=== PATIENT | female | born 1975 | race African-American/Black ===

== ENCOUNTER 2025-03-30 19:21 | Inpatient (IN) | payer OTHER ==
[~2025-03-30] VITALS: Ht 160 cm; Wt 110.0 kg
[2025-03-30 20:21] LABS: PLATELET COUNT (AUTO) 233 K/uL (150-450); RED BLOOD CELL COUNT(AUTO) 4.98 MIL/uL (4.00-5.20); RED CELL DISTRIBUTION WIDTH 14.0 % (11.5-14.5); WHITE BLOOD COUNT (AUTO) 7.6 K/uL (4.5-11.0)
[2025-03-30 20:35] LABS: ASPARTATE AMINOTRANSFERASE 56.0 U/L (15-37); TOTAL PROTEIN, SERUM 7.6 g/dL (6.4-8.2)
[2025-03-30 20:38] LABS: APPEARANCE,URINE CLEAR (CLEAR); GLUCOSE, URINE (UA) >=1000 mg/dL (NEGATIVE); LEUKOCYTE ESTERASE ,URINE NEGATIVE (NEGATIVE); NITRATE,URINE NEGATIVE (NEGATIVE); OCCULT BLOOD,URINE NEGATIVE (NEGATIVE); SPECIFIC GRAVITIY, URINE 1.038 (1.003-1.030)
[2025-03-30 20:46] LABS: SQUAMOUS EPITHELIAL CELL,UR Moderate /LPF (None Seen)
[2025-03-30 20:50] LABS: GLUCOMETER DEV NAME(LOC) ERT.7; GLUCOSE,POINT OF CARE 510 MG/DL (70-110)
[2025-03-30] MEDS: SODIUM CHLORIDE 0.9% 1,000 ML IV ONE (20:58)
[2025-03-30 20:59] LABS: CALCIUM, TOTAL 9.1 mg/dL (8.8-10.5); CREATININE 0.95 mg/dL (0.60-1.30); GLOMERULAR FILTR. RATE CALC > 60 mL/min (>60); SODIUM SERUM 127 mmol/L (136-145); UREA NITROGEN, BLOOD 7 mg/dL (7-18)
[2025-03-30] MEDS: INSULIN REGULAR, HUMAN 100 UNITS/ML IVP ONE (21:01)
[2025-03-30 21:02] LABS: GLUCOSE,RANDOM 483 mg/dL (70-110)
[2025-03-30] MEDS ORDERED: POTASSIUM CHL 20 MEQ/0.45% NS 1,000 ML IV PRN (22:15)
[2025-03-30] MEDS ORDERED: DEXTROSE 5%-0.45% SODIUM CHL 1,000 ML IV PRN (22:15)
[2025-03-30] MEDS ORDERED: POTASSIUM CHLORIDE 40 MEQ in SODIUM CHLORIDE 0.45% 1,000 ML IV PRN (22:15)
[2025-03-30] MEDS ORDERED: SODIUM CHLORIDE 0.9% 1,000 ML IV SCH (22:15)
[2025-03-30] MEDS ORDERED: INSULIN REGULAR, HUMAN 100 UNITS/ML IVP PRN (22:15)
[2025-03-30] MEDS ORDERED: DEXTROSE 50%-WATER 25 GM/50 ML SYRINGE IVP PRN (22:15)
[2025-03-30] MEDS ORDERED: SODIUM CHLORIDE 0.45% 1,000 ML IV PRN (22:15)
[2025-03-30] MEDS ORDERED: INSULIN REGULAR, HUMAN 100 UNITS/ML IVP ONE (22:15)
[2025-03-30 22:36] LABS: GLUCOMETER DEV NAME(LOC) ERT.7; GLUCOSE,POINT OF CARE 338 MG/DL (70-110)
[2025-03-30] MEDS: INSULIN REGULAR, HUMAN 100 UNITS in SODIUM CHLORIDE 0.9% 99 ML IV PRN (23:09)
[2025-03-31] MEDS ORDERED: ONDANSETRON HCL 4 MG/2 ML VIAL IVP PRN
[2025-03-31] MEDS ORDERED: DEXTROSE 50%-WATER 25 GM/50 ML SYRINGE IVP PRN
[2025-03-31 00:26] LABS: GLUCOMETER DEV NAME(LOC) ERT.7; GLUCOSE,POINT OF CARE 315 MG/DL (70-110)
[2025-03-31] MEDS: INSULIN GLARGINE,HUM.REC.ANLOG 100 UNITS/ML SQ SCH (00:33)
[2025-03-31] MEDS: INSULIN LISPRO 100 UNITS/ML SQ PRN (00:34)
[2025-03-31] MEDS: SODIUM CHLORIDE 0.9% 1,000 ML IV ONE (00:35)
[2025-03-31] MEDS: HEPARIN SODIUM,PORCINE 5,000 UNITS/ML VIAL SQ SCH (00:37)
[2025-03-31 01:16] LABS: ABG BASE EXCESS -3.2 mmol/L (-2.0-3.0); ABG CARBOXYHEMOGLOBIN 0.6 % (0.5-1.5); ABG HCO3 22.2 mmol/L (21.0-28.0); ABG METHEMOGLOBIN 0.8 % (0.0-1.5); ABG OXYGEN CONTENT 17.9 mL/dL (15.0-23.0); ABG OXYGEN SATURATION 95.9 % (94.0-98.0); ABG OXYHEMOGLOBIN 94.6 % (94.0-98.0); ABG PCO2 37 mmHg (32.0-45.0); ABG PH 7.389 (7.350-7.450); ABG TOTAL HEMOGLOBIN 13.4 G/dL (12.0-16.0); ALLEN TEST, BLOOD GAS POS; FRACTIONATED INSPIRED OXYGEN 21.0 % (21-100.0); PO2, ARTERIAL BG 79.0 mmHg (83.0-108.0); SITE, BLOOD GAS RT BRACHIAL; SOURCE, BLOOD GAS ARTERIAL; TEMPERATURE, FAHRENHEIT, BG 98.3 FAHREN (96.0-98.6)
[2025-03-31 01:18] LABS: ABG A-A DIFF O2 26.7 mmHg (10-20.0)
[2025-03-31 01:36] LABS: GLUCOMETER DEV NAME(LOC) ERT.7; GLUCOSE,POINT OF CARE 258 MG/DL (70-110)
[2025-03-31] MEDS: RINGERS SOLUTION,LACTATED 1,000 ML IV SCH (01:47)
[2025-03-31 02:51] LABS: GLUCOMETER DEV NAME(LOC) ERT.7; GLUCOSE,POINT OF CARE 221 MG/DL (70-110)
[2025-03-31] MEDS ORDERED: IOHEXOL 350 MG/ML 100 ML VIAL ONE (02:57)
[2025-03-31 03:30] VITALS: BP 158/63; PULSE 63; RESP 17; TEMP 98; O2SAT 100
[2025-03-31 07:26] LABS: GLUCOMETER DEV NAME(LOC) 5S.1D; GLUCOSE,POINT OF CARE 214 MG/DL (70-110)
[2025-03-31 07:26] LABS: GLUCOMETER DEV NAME(LOC) 5S.2D; GLUCOSE,POINT OF CARE 180 MG/DL (70-110)
[2025-03-31 07:44] LABS: PLATELET COUNT (AUTO) 213 K/uL (150-450); RED BLOOD CELL COUNT(AUTO) 4.74 MIL/uL (4.00-5.20); RED CELL DISTRIBUTION WIDTH 13.9 % (11.5-14.5); WHITE BLOOD COUNT (AUTO) 5.9 K/uL (4.5-11.0)
[2025-03-31] MEDS: DOCUSATE SODIUM 100 MG CAPSULE PO SCH (08:18)
[2025-03-31] MEDS: ACETAMINOPHEN 325 MG TABLET PO PRN (08:18)
[2025-03-31 08:23] VITALS: BP 151/98; PULSE 65; RESP 18; TEMP 98.1; O2SAT 100
[2025-03-31 11:16] VITALS: BP 130/79; PULSE 67; RESP 18; TEMP 97.9; O2SAT 97
[2025-03-31 12:57] LABS: CALCIUM, TOTAL 8.2 mg/dL (8.8-10.5); CREATININE 0.61 mg/dL (0.60-1.30); GLOMERULAR FILTR. RATE CALC > 60 mL/min (>60); GLUCOSE,RANDOM 155 mg/dL (70-110); SODIUM SERUM 136 mmol/L (136-145); UREA NITROGEN, BLOOD 3 mg/dL (7-18)
[2025-03-31 15:45] VITALS: BP 145/99; PULSE 71; RESP 18; TEMP 98.1; O2SAT 98
[2025-03-31] MEDS: CefTRIAXone 1 GM/DEXTROSE 50 ML IV ONE (16:49)
[2025-03-31] MEDS: FLUCONAZOLE 150 MG TABLET PO ONE (16:49)
[2025-03-31] MEDS: LIDOCAINE 2% 6 ML JELLY TP PRN (16:50)
[2025-03-31] MEDS: HYDROCORTISONE 2.5% 30 GM CREAM TP SCH (16:50)
[2025-03-31 17:00] LABS: GLUCOMETER DEV NAME(LOC) 5S.1D; GLUCOSE,POINT OF CARE 153 MG/DL (70-110)
[2025-03-31] MEDS ORDERED: ATEN-72 PO (17:46)
[2025-03-31] MEDS ORDERED: ROSU20TA98 PO (17:46)
[2025-03-31] MEDS ORDERED: TIRZ2.5P SQ (17:46)
[2025-03-31 18:56] LABS: GLUCOMETER DEV NAME(LOC) 5S.2D; GLUCOSE,POINT OF CARE 242 MG/DL (70-110)
[2025-03-31 20:00] VITALS: BP 155/87; PULSE 65; RESP 20; TEMP 97.9; O2SAT 100
[2025-03-31] MEDS: NYSTATIN 15 GM POWDER BOTTLE TP SCH (21:13)
[2025-04-01] VITALS: BP 114/59; PULSE 64; RESP 20; TEMP 98.1; O2SAT 96
[2025-04-01 04:00] VITALS: BP 127/86; PULSE 65; RESP 20; TEMP 97.9; O2SAT 99
[2025-04-01 05:06] LABS: GLUCOMETER DEV NAME(LOC) 5S.2D; GLUCOSE,POINT OF CARE 240 MG/DL (70-110)
[2025-04-01 06:44] LABS: PLATELET COUNT (AUTO) 224 K/uL (150-450); RED BLOOD CELL COUNT(AUTO) 5.00 MIL/uL (4.00-5.20); RED CELL DISTRIBUTION WIDTH 14.1 % (11.5-14.5); WHITE BLOOD COUNT (AUTO) 5.6 K/uL (4.5-11.0)
[2025-04-01 07:05] LABS: CALCIUM, TOTAL 8.7 mg/dL (8.8-10.5); CREATININE 0.62 mg/dL (0.60-1.30); GLOMERULAR FILTR. RATE CALC > 60 mL/min (>60); GLUCOSE,RANDOM 202 mg/dL (70-110); SODIUM SERUM 141 mmol/L (136-145); UREA NITROGEN, BLOOD 2 mg/dL (7-18)
[2025-04-01 07:24] VITALS: BP 150/83; PULSE 63; RESP 18; TEMP 98.8; O2SAT 100
[2025-04-01 11:06] LABS: GLUCOMETER DEV NAME(LOC) 5S.2D; GLUCOSE,POINT OF CARE 206 MG/DL (70-110)
== END 2025-04-01 10:10 | disposition left against medical advice (07) | DRG 638 ==
LOC: EMS 19:59 → EDH 23:55 → 5S 03-31 03:18
PROVIDERS: ADMIT Internal Medicine; ATTEND Internal Medicine
DX: E11.10 Type 2 diabetes mellitus with ketoacidosis without coma (principal); N39.0 Urinary tract infection, site not specified; E86.0 Dehydration; E66.01 Morbid (severe) obesity due to excess calories; R10.9 Unspecified abdominal pain; Z53.29 Procedure and treatment not carried out because of patient's decision for other reasons; I10 Essential (primary) hypertension; Z68.41 Body mass index [BMI] 40.0-44.9, adult; Z85.3 Personal history of malignant neoplasm of breast
CPT/HCPCS: 71045; 74177; 80048; 80076; 81001; 82009; 82805; 82962; 83690; 85025; 87086; 87147; 99291; G0378; J0696; J1644; J1815; J3480; J7050; J7120; 36415-L1; 36415-TC